=== PATIENT | male | born 1935 | race Caucasian/White ===

== ENCOUNTER 2018-12-15 07:50 | Day surgery (SDC) | payer BC ==
[2018-12-15] MEDS ORDERED: BUPIVACAINE/EPI 0.5% 10 ML SOL INFIL ONE (08:15)
[2018-12-15] MEDS ORDERED: LIDOCAINE HCL 1% MPF 30 SOL ONE (08:32)
[2018-12-15] MEDS ORDERED: FENTANYL 100MCG/2ML SOL ONE (08:32)
[2018-12-15] MEDS ORDERED: PROPOFOL 500 MG/50 ML EMU IV ONE (08:32)
[2018-12-15] MEDS ORDERED: CEFAZOLIN SODIUM 1 GM PDS ONE (09:02)
[2018-12-15 10:59] VITALS: BP 153/78; RESP 18; TEMP 97.3
[2018-12-15 11:01] VITALS: PULSE 55; O2SAT 93
== END 2018-12-15 11:35 | disposition home or self-care (01) | DRG 395 ==
LOC: SURG 07:50
PROVIDERS: ATTEND Surgery
DX: K40.90 Unilateral inguinal hernia, without obstruction or gangrene, not specified as recurrent (principal)
CPT/HCPCS: J0690; J3010; A6402; C1781; J2001; J2704